=== PATIENT | male | born 1965 | race Caucasian/White ===

== ENCOUNTER 2018-12-18 23:51 | Emergency (ER) | payer MEDICARE ==
[~2018-12-18] VITALS: Ht 165.1 cm; Wt 65.8 kg
--- NOTE | ~2018-12-18 | EMS ---
[address] [address] EMS Patient Care Report Name: MILADIS SEE Room #: DEP PHAM Yin#: [id number] Admission: 12/18/18 Attend Phys: Discharge: 12/19/18 Date of : 61 Report #: [id number] THIS REPORT FOR: //name// Report Transmitted: 12/19/2018 00:08 EMS Care Summary [place], [place]/[facility] Incident [id number] @ 12/18/2018 23:28 Incident Location [address] [place] [address] [place] [address] Patient MILADIS SEE Male, 53 Years 1965 Patient Address [id number] [place] [address] [place] [address] Patient History Migraine, Patient Allergies No known allergies, Patient Medications Fioricet, [place], Chief Complaint Possible medication reaction Disposition Transported No Lights/[place] Reason Overdose/Poisoning/Ingestion Transported To [facility] Narrative 53 y/o male with a possible medication reaction. On arrival found pt sitting in chair on front porch with bystander and P28 on scene. Pt stated for the last 20-30 minutes he has felt his heart racing and [address] [address] EMS Patient Care Report Name: MILADIS SEE Room #: DEP Annamaria#: [id number] Admission: 12/18/18 Attend Phys: Discharge: 12/19/18 Date of : 61 Report #: [id number] checked his blood pressure and got a reading of over 170 systolic. Pt stated that his heart rate increased to the 120-130 range. Pt stated that he was concerned that two of the medications that he takes for his migraines may have caused his symptoms. Pt stated that both medications have tylenol in them and that he didn't know if he had to much tylenol. Pt stated that he took the medications as prescribed and didn't take more than he was supposed to. Pt appeared anxious and when he looked at the monitor during transport his heart rate and blood pressure increased. Pt stated that he was at [facility] ED yesterday for dehydration symptoms related to diarrhea. Pt stated that he has been able to keep food and fluid down today without issue and didn't think that was a cause of tonight's issue. EMS asked pt if he wanted to go back to [facility] and pt stated no that he wanted to be taken to [facility] ED tonight. EMS monitored pt/VS/ECG en route to [facility] ED. Transferred care of pt to [facility] ED RN without incident. Initial Vitals @23:47P: 103,BP: 147/97,CO: 0,SpO2: 95, @23:37P: 121,R: 20,BP: 132/97,Pain: 0/10,GCS: 15,SpO2: 95,Revised Trauma: 12, Assessments @23:34MENTAL:No Abnormalities,SKIN:No Abnormalities,HEENT:Head/Face: No Abnormalities,Eyes: No Abnormalities,Neck/Airway: No Abnormalities,LUNG SOUNDS:General: No Abnormalities,Left Upper: No Abnormalities,Right Upper: No Abnormalities,Left Lower: No Abnormalities,Right Lower: No Abnormalities,ABDOMEN:General: No Abnormalities,Left Upper: No Abnormalities,Right Upper: No Abnormalities,Left Lower: No Abnormalities,Right Lower: No Abnormalities,PELVIS//GI:No Abnormalities,EXTREMITIES:Capillary Refill: Left Upper: < 2 Sec,Left Arm: No Abnormalities,Right Arm: No Abnormalities,Left Leg: No Abnormalities,Right Leg: No Abnormalities,PULSE:Radial: 2+ Normal,NEURO:No Abnormalities, Impression Palpitations Procedures @23:34ALS AssessmentResponse: Not ApplicableSucceeded Timeline 23:26,Call Received 23:26,Dispatch Notified 23:28,Dispatched 23:29,En Route 23:33,On Scene 23:34,At Patient 23:34,ALS Assessment,Response: Not ApplicableSucceeded, [facility] [address] [place] [address] EMS Patient Care Report Name: MILADIS SEE Kurt Room #: DEP Annamaria#: [id number] Admission: 12/18/18 Attend Phys: Discharge: 12/19/18 Date of : 61 Report #: [id number] 23:37,BP: 132/97 M,PULSE: 121,RR: 20 R,SPO2: 95 Ox,ETCO2: ,BG: ,PAIN: 0,GCS: 15, 23:41,Depart Scene 23:47,BP: 147/97 M,PULSE: 103,RR: R,SPO2: 95 Ox,ETCO2: ,BG: ,PAIN: ,GCS: , 23:49,At Destination 23:59,Call Closed Disclaimer [email or web address] Copyright 2019 [employer] This EMS Care Summary contains data elements from the applicable legal record (which may be displayed differently). It is designed to provide pertinent information for the following purposes: continuity of care, clinical quality, and state data reporting. The complete legal record is available to ED staff and administrators of the receiving hospital in [employer]'s Patient Tracker. All data is provided "as is."
[2018-12-19] MEDS ORDERED: ASPIR 8181 MG PO (00:04)
[2018-12-19] MEDS ORDERED: CLONAZEPAM 0.50.5 M1 PO (00:04)
[2018-12-19] MEDS ORDERED: VENTOLIN HFA 1818 GM INH (00:04)
[2018-12-19] MEDS ORDERED: LIPITOR 20 MG T20 M1 PO (00:05)
[2018-12-19] MEDS ORDERED: PHENERGAN 25 MG25 M1 PO (00:05)
[2018-12-19] MEDS ORDERED: SYMBICORT160 MCG/4. INH (00:06)
[2018-12-19] MEDS ORDERED: TOPROL XL25 MG PO (00:06)
[2018-12-19] MEDS ORDERED: SINGULAIR 10 MG10 M1 PO (00:07)
[2018-12-19] MEDS ORDERED: GABITRIL2 MG PO (00:07)
[2018-12-19] MEDS ORDERED: QUETIAPINE FUM100 MG PO (00:07)
[2018-12-19] MEDS ORDERED: SPIRIVA INH (00:08)
[2018-12-19] MEDS ORDERED: TOPAMAX50 MG PO (00:08)
[2018-12-19 00:09] LABS: HEMATOCRIT 39.5 % (42.0-52.0); HEMOGLOBIN 13.5 gm/dL (14.0-18.0); MCH 31.1 pg (26.0-34.0); MCHC 34.1 g/dL (28.0-37.0); MCV 91.2 fL (80.0-100.0); RBC 4.33 mil/uL (4.50-6.00); WBC 8.6 thou/uL (4.0-11.0)
[2018-12-19 00:14] LABS: ANION GAP 14 mmol/L (7-16); BUN 14 mg/dL (7-18); CALCIUM 9.2 mg/dL (8.5-10.1); CHLORIDE 105 mmol/L (98-107); CO2 20 mmol/L (21-32); CREATININE 1.2 mg/dL (0.7-1.3); GLUCOSE 125 mg/dL (74-106); POTASSIUM 4.1 mmol/L (3.5-5.1); SODIUM 139 mmol/L (136-145)
[2018-12-19 00:24] LABS: ALBUMIN 3.9 g/dL (3.4-5.0); SGOT 16 U/L (15-37); SGPT 25 U/L (30-65); TOTAL BILIRUBIN 0.2 mg/dL (<0.1-1.0); TOTAL PROTEIN 8.1 g/dL (6.4-8.2); TROPONIN-I <0.06 ng/mL (<0.06)
[2018-12-19 00:38] VITALS: BP 109/76
--- NOTE | 2018-12-19 13:42 | EKG ---
[place] [address] [address] [facility] [email or web address] [address] ELECTROCARDIOGRAM REPORT Name: MILADIS SEE [id number] Admission: 12/18/18 Attend Phys: Discharge: 12/19/18 Date of : 61 Report #: [id number] THIS REPORT FOR: //name// [facility] ED Test Date: 2018-12-19 Test Time: 00:02:11 Pat Name: MILADIS SEE Department: Room: Gender: C Win[employer] Developer: BRII : 1965 Requested By: Rc Dc Order Number: [id number] MD: John Fowler Measurements Intervals [place] Rate: 100 P: 58 [place]: 166 QRS: -48 QRSD: 86 T: 52 QT: 359 QTc: 463 Interpretive Statements Sinus tachycardia Abnormal R-wave progression, early transition Nonspecific T-wave abnormalities No previous ECG available for comparison Electronically Signed On 12-19-2018 13:41:51 CDT by John Fowler [email or web address] <ELECTRONICALLY SIGNED> By: John Fowler MD 12/19/18 1341 0002 0002 John Fowler MD /EPI
== END 2018-12-19 00:38 | disposition home or self-care (01) ==
LOC: ER 23:51
PROVIDERS: Emergency Medicine
DX: R00.2 Palpitations (principal); Z88.8 Allergy status to other drugs, medicaments and biological substances